=== PATIENT | female | born 2000 | race Caucasian/White ===

== ENCOUNTER 2025-08-07 15:23 | Emergency (ER) | payer BC, SELFPAY ==
[2025-08-07 15:26] VITALS: BP 103/70; PULSE 96; RESP 18; TEMP 36.7; O2SAT 98; BMI 21.5
--- NOTE | 2025-08-07 16:07 | CRLHL7_ITS ---
For Patients: As a result of the Century Cures Act, medical imaging exams and procedure reports are released immediately into your electronic medical record. You may view this report before your referring provider. If you have questions, please contact your health care provider. INDICATION: Vomiting abdominal pain, cough TECHNIQUE: Two views of the chest COMPARISON: None. FINDINGS: Clear lungs. No focal consolidation, pleural effusion, or pneumothorax. Normal cardiomediastinal silhouette. Linear densities in the right abdomen which may represent surgical material/staple. IMPRESSION: No acute radiographic cardiopulmonary abnormality. Dictated by Darius Tate MD @ 08/07/2025 4:46:41 PM (Electronically Signed)
--- OUTSIDE RECORDS SUMMARY | 2025-08-07 16:21 | XMS_ITS | Patient Health Record ---
Author Organization [facility] Address [address] [place] [address] Care Team Providers Care Sausage Wrapper Name Role Phone None, None Primary Care Provider LORA Solano Unavailable [phone] Brandee Chisholm Unavailable Unavailable Allergies No Known Allergies Reason For Referral No Information Medications Medication SIG (Take, Route, Frequency, Duration) Notes Start Date End Date Status Cetirizine HCl 10 MG Tablet 1 tablet Orally Once a day A ctive Social History Tobacco Use: Social History Observation Description Date Details (start date - stop date) Never Smoker NA - NA Social History Alcohol Use: Social Info Question Answer Notes Recreational drugs Recreational Drug Use: No Drug/Alcohol: Social Info Question Answer Notes AUDIT-C (Standard) Did you have a drink containing alcohol in the past year? 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
[2025-08-07] MEDS: LACTATED RINGERS 1000 ML 1,000 ML IV (16:32)
[2025-08-07] MEDS: ONDANSETRON 2 MG/ML inj 4 MG IVP (16:32)
--- NOTE | 2025-08-07 16:51 | CRLHL7_ITS ---
For Patients: As a result of the Cures Act, medical imaging exams and procedure reports are released immediately into your electronic medical record. You may view this report before your referring provider. If you have questions, please contact your health care provider. INDICATION: Right upper quadrant pain. TECHNIQUE: Ultrasound abdomen limited to evaluation of the gallbladder and common bile duct. COMPARISON: None. FINDINGS: Gallbladder: No shadowing stones, wall thickening or pericholecystic fluid. Common bile duct: 2 mm. No free fluid evident. IMPRESSION: Normal gallbladder and common bile duct. Dictated by Jesus Mendoza MD @ 08/07/2025 6:06:33 PM Dictated by: Jesus Mendoza MD @ 08/07/2025 18:06:41 (Electronically Signed)
--- NOTE | 2025-08-07 16:58 | ED_ITS ---
HPI - Abdominal Pain General Date Seen: 08/07/25 Chief Complaint: Abdominal Pain Stated Complaint: vomiting, abdomen pain Time Seen by Provider: 08/07/25 15:39 Source: patient Mode of arrival: ambulatory Limitations: no limitations History of Present Illness HPI narrative: Patient is a 25-year-old female presenting to the emergency department for right upper quadrant abdominal pain. He states he has been going on over now. In the pain was initially occurring she was seen and an outside hospital emergency department where a CT scan was done showing no abnormalities abdomen some consti pation. There is no other concerning abnormalities according to the patient. She was discharged home and then was doing with worsening constipation next few days and over the weekend she took the entire bottle of magnesium citrate. She states she has had several bowel movements after that but continued to have the pain. She states the pain is mostly in the right upper quadrant but she has done generalized discomfort of her abdomen. She went to the emergency department again yesterday but left without being seen due to long wait. Denies fevers, chills, chest pain, headache, lightheadedness, dizziness. Does state when she takes a deep breath she feels pain in abdomen and causes her to feel like she can not take a full breath. Denies dysuria, polyuria, vaginal bleeding or discharge. No previous abdominal surgeries. Does states she has not been able to eat or drink much the past couple days due to the associated nausea. Has not taking anything at for the nausea. Related Data Home Medications ?Medication ?Instructions ?Recorded ?Confirmed No Known Home Medications 08/07/2507/23 Allergies Allergy/AdvReac Type Severity Reaction Status Date / Time No Known Drug Allergies Allergy Verified 08/07/25 15:38 Review of Systems Status of ROS Reports: 10 or more systems reviewed and unremarkable except as noted in History and below Exam Narrative: Exam Narrative: Const: Well-nourished, Well-developed, in mild distress Eyes: PERRL, no conjunctival injection, and symmetrical lids HENT: Atraumatic external nose and ears. Moist mucous membranes. Neck: Symmetric, trachea midline, No thyromegaly. CVS: RRR, No murmurs or gallops. Peripheral pulses 2+ and equal in all extremities RESP: Unlabored respiratory effort. Clear to auscultation bilaterally. GI: Diffuse abdominal tenderness, worse in the right upper quadrant. Nondistended, No rebound or guarding. MSK:Extremities w/o deformity, Normal Active ROM Skin: Warm, Dry. No rashes or lesions. Neuro: Normal Muscle tone, No focal neurological deficits. Psych: Awake, Alert, & Oriented x3. Appropriate mood and affect. Const: Vital Signs, click to edit/add: Vital Signs - 24 hr 08/07/25 15:26 Temperature 98.0 F Pulse Rate [Pulse Oximeter] 96 Respiratory Rate 18 Blood Pressure [Ri ght Upper Arm] 103/70 Pulse Oximetry 98 Oxygen Delivery Me thod Room Air Course Vital Signs Vital signs: Initial Vital Signs Temperature 98.0 F 08/07/25 15:26 Temperature Source Temporal Artery Scan 08/07/25 15:26 Pulse Rate 96 08/07/25 15:26 Respiratory Rate 18 08/07/25 15:26 Blood Pressure 103/70 08/07/25 15:26 Blood Pressure Mean 81 08/07/25 15:26 Blood Pressure Position Sitting 08/07/25 15:26 Pulse Oximetry 98 08/07/25 15:26 Oxygen Delivery Method Room Air 08/07/25 15:26 Vital Signs Temperature 98.0 F 08/07/25 15:26 Pulse Rate 96 08/07/25 15:26 Respiratory Rate 18 08/07/25 15:26 Blood Pressure 103/70 08/07/25 15:26 Pulse Oximetry 98 08/07/25 15:26 Oxygen Delivery Method Room Air 08/07/25 15:26 Temperature 98.0 F 08/07/25 15:26 Pulse Rate 96 08/07/25 15:26 Respiratory Rate 18 08/07/25 15:26 Blood Pressure 103/70 08/07/25 15:26 Pulse Oximetry 98 08/07/25 15:26 Oxygen Delivery Method Room Air 08/07/25 15:26 Medications Administered Medications: Discontinued Medications Generic Name Dose Route Start Last Admin Trade Name Freq PRN Reason Stop Dose Admin Lactated Ringer's 1,000 mls @ 1,000 mls/hr 08/07/25 16:07 08/07/25 17:39 Lactated Ringers 1000 Ml IV 08/07/25 17:06 Infused .Q1H ONE Infusion Ketorolac Tromethamine 15 mg 08/07/25 16:07 08/07/25 16:32 Ketorolac 15 Mg/Ml Inj IVP 08/07/25 16:08 15 mg ONCE ONE Administration Ondansetron HCl 4 mg 08/07/25 16:07 08/07/25 16:32 Ondansetron 2 Mg/Ml Inj IVP 08/07/25 16:08 4 mg ONCE ONE Administration MDM - Abdominal Pain MDM Narrative Medical decision making narrative: Patient is a 25-year-old female presenting to the emergency department for abdominal pain. Differential includes gallbladder/liver disease, gastroenteritis, pancreatitis. Due to location of pain appendicitis seems less likely. With no previous abdominal surgeries and due to her age SBO in diverticulitis seem unlikely. She is having some chest pain with deep breath but is in her lower chest right above for her abdominal pain is in she states shortness of breath is mostly due to having pain abdomen she takes a deep breath. Will do a chest x-ray to look for signs of pneumonia but do not believe further workup is necessary. Would do an ultrasound of the right upper quadrant for further evaluation. She is feeling dehydrated so L of fluids was given and Toradol and Zofran given for her symptoms. CBC, CMP, lipase, urinalysis, urine test all ordered. Lab work returned showing no acute concerning abnormalities. Chest x-ray reviewed by myself and the radiologist shows no acute concerning abnormalities. Gallbladder ultrasound showed no acute concerning abnormalities. I spoke to the patient again explained were at with acting looking normal I am unable to determine what is causing her pain. I spoke to her about doing another CT scan. I explained that there is a small increased risk of cancer for from a CT scan of about 0.1%. I also did explain that it seems unlikely this CT scan which show any abnormalities considering she recently had fallen and again her lab work is not concerning. After shared decision making she decided not to do a CT scan. At this time she will be discharged to follow-up with her primary care provider. She is agreeable to this plan Lab Data Labs: Lab Results 08/07/25 08/07/25 Range/Units 16:07 17:05 WBC 11.86 H (4.50-11.00) K/uL RBC 4.26 (4.00-5.20) m/uL Hgb 13.3 (12.0-16.0) gm/dL Hct 39.9 (33.0-51.0) % MCV 94 (80-100) fL MCH 31 (26-34) pg MCHC 33 (32-36) gm/dL RDW Coeff of [facility] 12.5 (11.5-15.5) % Plt Count 563 H (140-440) K/uL Neut % (Auto) 72.5 H (42.0-72.0) % Lymph % (Auto) 21.9 (20-44) % [place] % (Auto) 4.2 (0.0-11.0) % Eos % (Auto) 0.8 (0.0-7.0) % Baso % (Auto) 0.3 (0.0-3.0) % Neut # (Auto) 8.60 H (1.7-7.0) K/uL Lymph # (Auto) 2.60 (0.90-2.90) K/uL Cand[place] # (Auto) 0.50 (0.00-0.90) K/UL Eos # (Auto) 0.10 (0.00-0.50) K/uL Baso # (Auto) 0.00 (0.00-0.30) K/uL Abs Immat Gran (auto) 0.00 (0.00-0.30) K/uL Imm/Tot Granulo (auto) 0.3 % Sodium 136 (135-149) mmol/L Potassium 3.9 (3.6-5.1) mmol/L Chloride 98 (96-114) mmol/L Carbon Dioxide 28 (20-32) mmol/L Anion Gap 10 (7-15) mEq/L BUN 10 (5-24) mg/dL Creatinine 0.7 (0.5-1.5) mg/dL Estimated Creat Clear 91.10 Estimated GFR 121 ml/min Glucose 90 (60-115) mg/dL Calcium 9.6 (8.4-10.6) mg/dL Total Bilirubin 0.4 (0.1-1.5) mg/dL AST 34 (12-35) U/L ALT 29 (4-35) U/L Alkaline Phosphatase 59 (40-150) U/L Total Protein 8.3 (6.0-8.3) g/dL Albumin 4.1 (3.3-5.0) g/dL Lipase 81 (23-300) U/L Urine Color Yellow (Yellow) Urine Appearance Clear (Clear) Urine pH 6.5 (5.0-8.5) Ur Specific [place] 1.010 (1.000-1.030) Urine Protein Negative (Negative) Urine Glucose (UA) Negative (Negative) Urine Ketones Negative (Negative) Urine Blood Negative (Negative) Urine Nitrite Negative (Negative) Urine Bilirubin Negative (Negative) Urine Urobilinogen 0.2 (0.2-1.0) Ur Leukocyte Esterase Negative (Negative) Urine RBC 0-2 (0-2) Urine WBC 0-2 (0-5) Ur Squamous Epith Cells Few (None-Few) Urine Bacteria None (None) Urine HCG, Qual Negative (Negative) Imaging Data Chest x-ray: Attestation: I have reviewed the pertinent imaging results. Radiologist's impression: No acute radiographic cardiopulmonary abnormality. Dictated by Darius Tate MD @ 08/07/2025 4:46:41 PM Gallbladder ultrasound: Attestation: I have reviewed the pertinent imaging results. Radiologist's impression: Normal gallbladder and common bile duct. Dictated by Jesus Mendoza MD @ 08/07/2025 6:06:33 PM Discharge Plan Discharge Clinical Impression: Abdominal pain Qualifiers: Abdominal location: right upper quadrant Qualified Code(s): R10.11 - Right upper quadrant pain Patient Disposition: Home, Self-Care Condition: Stable Instructions: Abdominal Pain (ED) Additional Instructions: At this time I cannot say exactly what is causing her abdominal pain. Recommend close follow-up with your primary care provider. Return to emergency department for new or worsening symptoms. Prescriptions: No Action No Known Home Medications Follow Up/Referrals: Provider,Not a Local [Primary Care Provider, Family Practice] Stand Alone Forms: [employer] Info Instructions
[2025-08-07 17:03] LABS: Hematocrit* 39.9 % (33.0-51.0); Hemoglobin* 13.3 gm/dL (12.0-16.0); Immature Granulocytes Pct Auto 0.3 %; Lymphocytes Absolute Auto 2.60 K/uL (0.90-2.90); Mean Corpuscular HGB Conc 33 gm/dL (32-36); Mean Corpuscular Hemoglobin 31 pg (26-34); Mean Corpuscular Volume 94 fL (80-100); RDW Coefficient of Variation % 12.5 % (11.5-15.5); Red Blood Count* 4.26 m/uL (4.00-5.20); White Blood Count* 11.86 K/uL (4.50-11.00)
[2025-08-07 17:14] LABS: Appearance Urine Clear (Clear)
[2025-08-07 17:17] LABS: Immature Granulocytes Abs Auto 0.00 K/uL (0.00-0.30); Slide Review Reflex No
[2025-08-07 17:19] LABS: Albumin* 4.1 g/dL (3.3-5.0); Chloride* 98 mmol/L (96-114); Potassium* 3.9 mmol/L (3.6-5.1); Sodium* 136 mmol/L (135-149)
[2025-08-07 17:21] LABS: Alanine Aminotransferase* 29 U/L (4-35); Anion Gap 10 mEq/L (7-15); Aspartate Amino Transferase* 34 U/L (12-35); Blood Urea Nitrogen* 10 mg/dL (5-24); Carbon Dioxide* 28 mmol/L (20-32); Creatinine* 0.7 mg/dL (0.5-1.5); Est. Creatinine Clearance* 91.10; Estimated Glomerular Filt Rate 121 ml/min
[2025-08-07 17:22] LABS: Alkaline Phosphatase* 59 U/L (40-150); Bilirubin Total* 0.4 mg/dL (0.1-1.5); Calcium* 9.6 mg/dL (8.4-10.6); Glucose* 90 mg/dL (60-115); Total Protein* 8.3 g/dL (6.0-8.3)
[2025-08-07 17:25] LABS: Ur HCG Qualitative* Negative (Negative)
== END 2025-08-07 18:57 | disposition home or self-care (01) ==
PROVIDERS: Emergency Provider Student in an Organized Health Care Education/Training Program
DX: R10.11 Right upper quadrant pain (principal); R07.9 Chest pain, unspecified
CPT/HCPCS: 36415; 71046; 76705; 80053; 81001; 81025; 83690; 85025; 96361; 96374; 96375; 99283; 99284; 99285; J1885; J2405; J7120